=== PATIENT | female | born 1985 | race Caucasian/White ===

== ENCOUNTER 2018-08-09 15:33 | Emergency (ER) | payer MEDICAID ==
[~2018-08-09] VITALS: Ht 160 cm; Wt 57.9 kg
[~2018-08-09 15:33] MED LIST: LIDO20SO PO
[2018-08-09 15:40] VITALS: BP 111/72
[2018-08-09] MEDS ORDERED: DOXY100C43 PO (15:44)
[2018-08-09] MEDS ORDERED: CefTRIAXone 250MG IM Kit w/LIDOcaine IM ONE (15:45)
[2018-08-09 16:17] LABS: CLARITY,URINE CLOUDY (Clear); COLOR,URINE YELLOW (Yellow); GLUCOSE, URINE NEGATIVE (Neg); KETONES,URINE TRACE mg/dl (Neg); LEUKOCYTE ESTERASE ,URINE MODERATE (Neg); NITRITES, URINE NEGATIVE (Neg); OCCULT BLOOD,URINE TRACE-INTACT (Neg); PH,URINE 5.5 (4.8-8.0); PROTEIN,URINE 30 mg/dl (Neg); UROBILINOGEN,URINE 0.2 E.U/dL (0.2-1.0)
[2018-08-09 16:18] LABS: UA COLLECTION TYPE VOIDED
[2018-08-09 16:19] LABS: URINE HCG NEGATIVE (NEG)
[2018-08-09 16:28] LABS: BACTERIA,URINE 2+ /HPF (Neg); SQUAMOUS EPITHELIAL CELL,UR MANY /LPF (FEW)
[2018-08-09 16:30] LABS: MUCUS STRANDS MODERATE /LPF (Neg); RBC,URINE 0-2 /HPF (0-2); WBC,URINE TNTC /HPF (0-4)
== END 2018-08-09 15:55 | disposition home or self-care (01) ==
LOC: ER 15:33
DX: A64 Unspecified sexually transmitted disease (principal); F12.90 Cannabis use, unspecified, uncomplicated; F15.90 Other stimulant use, unspecified, uncomplicated; Z90.49 Acquired absence of other specified parts of digestive tract; Z56.0 Unemployment, unspecified; Z79.899 Other long term (current) drug therapy
CPT/HCPCS: 36415; 81001; 81025; 87491; 99283

== ENCOUNTER 2019-12-18 23:24 | Emergency (ER) | payer MEDICAID ==
[~2019-12-18] VITALS: Ht 157.5 cm; Wt 59.1 kg
[2019-12-18] MEDS ORDERED: azithromycin 250mg tablet PO ONE (23:55)
[2019-12-18] MEDS ORDERED: CefTRIAXone 250MG IM Kit w/LIDOcaine IM ONE (23:55)
[2019-12-19 00:38] LABS: HCG SERUM QL NEGATIVE
[2019-12-19] MEDS ORDERED: penicillin G benzathine 1.2 million unit/2ml syringe IM ONE ×2 (00:45→01:00)
[2019-12-19 01:14] VITALS: BP 107/85
[2019-12-20 11:11] LABS: RPR Non Reactive (Non Reactive)
== END 2019-12-19 01:15 | disposition home or self-care (01) ==
LOC: ER 23:25
DX: Z20.2 Contact with and (suspected) exposure to infections with a predominantly sexual mode of transmission (principal); F12.90 Cannabis use, unspecified, uncomplicated; F15.90 Other stimulant use, unspecified, uncomplicated; Z90.49 Acquired absence of other specified parts of digestive tract; Z56.0 Unemployment, unspecified; Z79.899 Other long term (current) drug therapy
CPT/HCPCS: 36415; 84703; 86592; 96372; 99284; J0561; J0696